=== PATIENT | male | born 1970 | race Hispanic/Latino ===

== ENCOUNTER 2016-08-08 21:54 | Emergency (ER) | payer MEDICARE ==
[2016-08-08 22:24] VITALS: BP 141/86
[2016-08-08 22:51] LABS: Urine Drugs of Abuse Note Disclamer
[2016-08-08 23:08] LABS: Bacteria,Urine 1+ /HPF (Negative); Bilirubin,Urine NEG (Negative); Blood,Urine NEG (Negative); Ketones,Urine TR mg/dL (Negative); Leukocyte Esterase,Urine MOD (Negative); Mucus,Urine 2+ /HPF; Nitrite,Urine NEG (Negative); Protein,Urine <15 mg/dL mg/dL (Negative)
[2016-08-08 23:15] LABS: Basophils % (Auto) 0.6 % (0.0-1.8); Hematocrit 41.8 % (35.5-45.6); Hemoglobin 14.3 gm/dl (11.8-15.2); Mean Corpuscular HGB Conc 34 % (32-34); Mean Corpuscular Hemoglobin 33 pg (28-32); Mean Corpuscular Volume 96 fl (84-94); Platelet Count 347 K/mm3 (140-440); Red Blood Count 4.37 M/mm3 (3.65-5.03); White Blood Count 13.1 K/mm3 (4.5-11.0)
[2016-08-08 23:32] LABS: BUN/Creatinine Ratio 15.55; Blood Urea Nitrogen 14 mg/dL (9-20); Calcium 9.2 mg/dL (8.4-10.2); Carbon Dioxide 23 mmol/L (22-30); Chloride 103.2 mmol/L (98-107); Glucose 104 mg/dL (75-100); Potassium 4.6 mmol/L (3.6-5.0); Sodium 140 mmol/L (137-145)
[2016-08-08 23:42] LABS: Anion Gap 18 mmol/L
--- NOTE | 2016-08-09 19:36 | ED Elopement Review ---
ED Pt Elopement review - Results review Lab results: Laboratory Tests 08/08/16 08/08/16 08/08/16 22:48 22:48 22:48 WBC 13.1 H RBC 4.37 Hgb 14.3 Hct 41.8 MCV 96 H MCH 33 H MCHC 34 RDW 15.0 Plt Count 347 Lymph % (Auto) 28.4 Piute % (Auto) 10.7 H Eos % (Auto) 0.0 Baso % (Auto) 0.6 Lymph # 3.7 Piute # 1.4 H Eos # 0.0 Baso # 0.1 Seg Neutrophils % 60.3 Seg Neutrophils # 7.9 H Sodium 140 Potassium 4.6 Chloride 103.2 Carbon Dioxide 23 Anion Gap 18 BUN 14 Creatinine 0.9 Estimated GFR > 60 BUN/Creatinine Ratio 15.55 Glucose 104 H Calcium 9.2 Urine Color Urine Turbidity Urine pH Ur Specific Delong Urine Protein Urine Glucose (UA) Urine Ketones Urine Blood Urine Nitrite Urine Bilirubin Urine Urobilinogen Ur Leukocyte Esterase Urine WBC (Auto) Urine RBC (Auto) U Epithel Cells (Auto) Urine Bacteria (Auto) Calcium Oxalate Crystal Urine Mucus Urine Opiates Screen Urine Methadone Screen Ur Barbiturates Screen Ur Phencyclidine Scrn Ur Amphetamines Screen U Benzodiazepines Scrn Urine Cocaine Screen U Marijuana (THC) Screen Drugs of Abuse Note Plasma/Serum Alcohol < 0.01 08/08/16 08/08/16 Unknown Unknown WBC RBC Hgb Hct MCV MCH MCHC RDW Plt Count Lymph % (Auto) Piute % (Auto) Eos % (Auto) Baso % (Auto) Lymph # Piute # Eos # Baso # Seg Neutrophils % Seg Neutrophils # Sodium Potassium Chloride Carbon Dioxide Anion Gap BUN Creatinine Estimated GFR BUN/Creatinine Ratio Glucose Calcium Urine Color Yellow Urine Turbidity Clear Urine pH 5.0 Ur Specific Delong 1.028 Urine Protein <15 mg/dl Urine Glucose (UA) Neg Urine Ketones Tr Urine Blood Neg Urine Nitrite Neg Urine Bilirubin Neg Urine Urobilinogen 2.0 Ur Leukocyte Esterase Mod Urine WBC (Auto) 19.0 H Urine RBC (Auto) 3.0 U Epithel Cells (Auto) 1.0 Urine Bacteria (Auto) 1+ Calcium Oxalate Crystal 2+ Urine Mucus 2+ Urine Opiates Screen Presumptive negative Urine Methadone Screen Presumptive negative Ur Barbiturates Screen Presumptive negative Ur Phencyclidine Scrn Presumptive negative Ur Amphetamines Screen Presumptive negative U Benzodiazepines Scrn Presumptive negative Urine Cocaine Screen Presumptive negative U Marijuana (THC) Screen Presumptive negative Drugs of Abuse Note Disclamer Plasma/Serum Alcohol - Call Back decision Pt Call Back Decision: Pt to F/U with PMD (patient has a urinary tract infection )
== END 2016-08-09 01:02 | disposition left against medical advice (07) ==
LOC: ED 21:54
DX: R41.0 Disorientation, unspecified (principal); Z53.21 Procedure and treatment not carried out due to patient leaving prior to being seen by health care provider
CPT/HCPCS: 36415; 80048; 80307; 81001; 85025; G0480; 80320

== ENCOUNTER 2016-08-10 09:50 | Emergency (ER) | payer MEDICARE ==
--- NOTE | 2016-08-10 12:23 | Emergency Department Report ---
Chief Complaint: Medical Clearance Stated Complaint: FOOT PAIN Time Seen by Provider: 08/10/16 12:07 - HPI History of Present Illness: 46-year-old male, triage assumed homeless, brought in to the emergency department by police for foot pain and lower back pain 1-2 years. Parents are with him at the time of the exam and state that he was placed in a home and has run out of his medications for the past 3 days. Patient has history of paranoid schizophrenia. Parents state that he is not acting like himself and would like a psych evaluation. Patient denies auditory or visual hallucinations, suicidal or homicidal ideations. - ROS Review of Systems: Per HPI - Exam Vital Signs: Vital Signs 08/10/16 09:53 Temperature 97.5 F L Pulse Rate 81 Respiratory 18 Rate Blood Pressure 126/69 O2 Sat by Pulse 99 Oximetry Physical Exam: General: A 86-year-old male in no acute distress. Well-developed, well- nourished. CV: Regular rate and rhythm. Lungs: Clear to auscultation bilaterally. MSE screening note: Focused history and physical exam performed. Due to findings the following was ordered: ED Disposition for MSE Condition: Stable
[2016-08-10 12:45] LABS: Hemoglobin 14.3 gm/dl (11.8-15.2); Mean Corpuscular HGB Conc 32 % (32-34); Mean Corpuscular Hemoglobin 32 pg (28-32); Mean Corpuscular Volume 99 fl (84-94); Platelet Count 343 K/mm3 (140-440); Red Blood Count 4.46 M/mm3 (3.65-5.03); Red Cell Distribution Width 15.6 % (13.2-15.2); White Blood Count 16.8 K/mm3 (4.5-11.0)
[2016-08-10 12:55] LABS: BUN/Creatinine Ratio 21.11; Blood Urea Nitrogen 19 mg/dL (9-20); Calcium 9.1 mg/dL (8.4-10.2); Carbon Dioxide 11 mmol/L (22-30); Chloride 100.2 mmol/L (98-107); Glucose 116 mg/dL (75-100); Potassium 5.5 mmol/L (3.6-5.0); Sodium 137 mmol/L (137-145)
[2016-08-10 12:56] LABS: Anion Gap 31 mmol/L
[2016-08-10 13:27] LABS: Urine Drugs of Abuse Note Disclamer
[2016-08-10 13:39] LABS: Bilirubin,Urine NEG (Negative); Blood,Urine SM (Negative); Ketones,Urine 80 mg/dL (Negative); Leukocyte Esterase,Urine NEG (Negative); Mucus,Urine FEW /HPF; Nitrite,Urine NEG (Negative); Urobilinogen,Urine < 2.0 mg/dL (<2.0)
[2016-08-10 13:41] LABS: Blastocytes % (Manual) 0 %
[2016-08-10 13:42] LABS: Diff Status Complete; Platelet Estimate Consistent w Auto
[2016-08-10] MEDS ORDERED: HALDOL PO PRN (14:23)
[2016-08-10] MEDS ORDERED: NON-FORMULARY (Clonazepam [Klonopin] 1 MG) PO PRN (14:23)
[2016-08-10] MEDS: RisperDAL PO SCH ×2 (15:48→21:53)
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
[2016-08-10] MEDS ORDERED: COGENTIN PO SCH (22:00)
[2016-08-11 08:08] VITALS: BP 99/57
[2016-08-11] MEDS: RisperDAL PO SCH (10:30)
== END 2016-08-11 17:00 ==
LOC: ED 09:50 → EEVIPCON 09:50 → ED 08-11 17:00
DX: F20.89 Other schizophrenia (principal); Z04.6 Encounter for general psychiatric examination, requested by authority; Z72.0 Tobacco use
CPT/HCPCS: 36415; 80048; 80307; 81001; 85007; 85025; 99285; G0480; 80320

== ENCOUNTER 2017-04-07 13:20 | Emergency (ER) | payer MEDICARE ==
[2017-04-07 15:15] LABS: Urine Drugs of Abuse Note Disclamer
[2017-04-07 15:29] LABS: Bilirubin,Urine NEG (Negative); Blood,Urine NEG (Negative); Ketones,Urine NEG (Negative); Leukocyte Esterase,Urine NEG (Negative); Mucus,Urine FEW /HPF; Nitrite,Urine NEG (Negative); Protein,Urine <15 mg/dL mg/dL (Negative); Urobilinogen,Urine < 2.0 mg/dL (<2.0); WBC,Urine < 1.0 /HPF (0.0-6.0)
[2017-04-07 15:45] LABS: Basophils % (Auto) 0.8 % (0.0-1.8); Eosinophils % (Auto) 4.8 % (0.0-4.3); Hematocrit 39.1 % (35.5-45.6); Hemoglobin 12.8 gm/dl (11.8-15.2); Mean Corpuscular HGB Conc 33 % (32-34); Mean Corpuscular Hemoglobin 32 pg (28-32); Mean Corpuscular Volume 96 fl (84-94); Platelet Count 442 K/mm3 (140-440); Red Blood Count 4.07 M/mm3 (3.65-5.03); Red Cell Distribution Width 15.1 % (13.2-15.2); White Blood Count 9.8 K/mm3 (4.5-11.0)
[2017-04-07 15:57] LABS: Anion Gap 19 mmol/L; Blood Urea Nitrogen 10 mg/dL (9-20); Calcium 9.1 mg/dL (8.4-10.2); Carbon Dioxide 23 mmol/L (22-30); Chloride 101.3 mmol/L (98-107); Glucose 110 mg/dL (75-100); Potassium 4.3 mmol/L (3.6-5.0); Sodium 139 mmol/L (137-145)
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
[2017-04-07] MEDS ORDERED: MOTRIN PO PRN (21:43)
[2017-04-07] MEDS ORDERED: ZOFRAN ORAL LIQ PO PRN (21:43)
[2017-04-07] MEDS ORDERED: ATIVAN IM PRN (21:43)
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
[2017-04-07 22:27] LABS: Salicylate < 0.3 mg/dL (2.8-20.0); Valproate < 2.8 ug/mL (50-100)
[2017-04-09 06:30] VITALS: BP 114/72
== END 2017-04-09 11:01 | disposition home or self-care (01) ==
LOC: ED 13:20 → EEVIPCON 13:20 → ED 04-09 11:01
DX: F39 Unspecified mood [affective] disorder (principal); F20.9 Schizophrenia, unspecified; F17.200 Nicotine dependence, unspecified, uncomplicated; F14.10 Cocaine abuse, uncomplicated; F12.10 Cannabis abuse, uncomplicated
CPT/HCPCS: 36415; 80048; 80164; 80307; 81001; 82550; 85025; 99284; G0480; 80320